=== PATIENT | female | born 1980 | race African-American/Black ===

== ENCOUNTER 2020-09-02 06:49 | Emergency (ER) | payer OTHER ==
[~2020-09-02] VITALS: Ht 149.9 cm; Wt 78.0 kg
[2020-09-02] MEDS ORDERED: HYDROCHLOROTHIA25 M2 PO ×2 (07:09→10:19)
[2020-09-02] MEDS ORDERED: TOPROL XL50 MG PO (07:09)
[2020-09-02 07:51] LABS: ABSOLUTE BASOPHILS 0.1 thou/uL (0.0-0.2); ABSOLUTE EOSINOPHILS 0.1 thou/uL (0.0-0.7); ABSOLUTE LYMPHOCYTES 1.8 thou/uL (0.8-5.3); ABSOLUTE MONOCYTES 0.7 thou/uL (0.0-1.2); ABSOLUTE NEUTROPHILS 5.3 thou/uL (1.6-8.1); BASOPHILS 0.8 %; EOSINOPHILS 1.5 %; HEMATOCRIT 40.5 % (37.0-47.0); HEMOGLOBIN 13.6 gm/dL (12.0-15.0); LYMPHOCYTES 22.5 %; MCH 30.6 pg (26.0-34.0); MCHC 33.6 g/dL (28.0-37.0); MONOCYTES 9.1 %; MPV 8.5 fl. (7.2-11.1); NUCLEATED RBCS 0 /100WBC; PLATELET COUNT* 194 thou/uL (150-400); POLYS 66.1 %; RBC 4.45 mil/uL (4.20-5.00); RDW-CV 13.8 % (10.5-14.5)
[2020-09-02 08:10] LABS: CALCIUM 8.7 mg/dL (8.5-10.1); POTASSIUM 3.2 mmol/L (3.5-5.1)
[2020-09-02 08:13] LABS: ALBUMIN 3.6 g/dL (3.4-5.0); TOTAL BILIRUBIN 0.3 mg/dL (<0.1-1.0)
[2020-09-02] MEDS ORDERED: KAPSPARGO SPRIN50 MG PO (10:19)
[2020-09-02 10:47] VITALS: BP 146/92
--- NOTE | 2020-09-03 10:07 | EKG ---
[place] [address] ELECTROCARDIOGRAM REPORT Name: FERNYGRAYSON Flor Room: [facility]#: [id number] Admission: 09/02/20 Attend Phys: Discharge: 09/02/20 Date of : 84 Date of Service: 09/02/20716 Report #: [id number] THIS REPORT FOR: //name// [facility] ED Test Date: 2020-09-02 Test Time: 07:17:26 Pat Name: GRAYSON ISAACS Department: Room: Gender: F Medical Education Specialist: TDS : 1980 Requested By: Huan Nazario Order Number: [id number] MD: Manish Best Measurements Intervals [place] Rate: 86 P: 54 IA: 146 QRS: 36 QRSD: 98 T: 173 QT: 380 QTc: 455 Interpretive Statements Sinus rhythm Probable left atrial enlargement LVH with secondary repolarization abnormality Anterior Q waves, possibly due to LVH No previous ECG available for comparison Electronically Signed On 09-03-2020 10:07:00 OBSERVATORY DIRECTOR by Manish Best [email or web address] <ELECTRONICALLY SIGNED> By: Manish Best MD, FACC 09/03/20 1007 6 6 Manish Best MD, [facility] /EPI
== END 2020-09-02 10:48 | disposition home or self-care (01) ==
LOC: M.ERS 06:49
PROVIDERS: Emergency Medicine
DX: I10 Essential (primary) hypertension (principal); Z79.899 Other long term (current) drug therapy

== ENCOUNTER 2020-10-11 17:21 | Emergency (ER) | payer OTHER ==
[~2020-10-11] VITALS: Ht 149.9 cm; Wt 79.4 kg
[~2020-10-11 17:21] MED LIST: HYDROCHLOROTHIA25 M2 PO; KAPSPARGO SPRIN50 MG PO; TOPROL XL50 MG PO
[2020-10-11 17:53] LABS: HEMOGLOBIN 14.5 gm/dL (12.0-15.0); MCH 30.7 pg (26.0-34.0); MCHC 33.7 g/dL (28.0-37.0); MCV 91.1 fL (80.0-100.0); MPV 8.1 fl. (7.2-11.1); NUCLEATED RBCS 0 /100WBC; PLATELET COUNT* 228 thou/uL (150-400); RBC 4.72 mil/uL (4.20-5.00); RDW-CV 14.3 % (10.5-14.5); WBC 14.8 thou/uL (4.0-11.0)
[2020-10-11 18:02] LABS: CALCIUM 9.2 mg/dL (8.5-10.1); POTASSIUM 3.2 mmol/L (3.5-5.1)
[2020-10-11 18:06] LABS: ALBUMIN 3.9 g/dL (3.4-5.0); TOTAL BILIRUBIN 0.8 mg/dL (<0.1-1.0); TOTAL PROTEIN 7.7 g/dL (6.4-8.2)
[2020-10-11 18:12] LABS: ABSOLUTE LYMPHOCYTES 0.6 thou/uL (0.8-5.3); ABSOLUTE MONOCYTES 0.3 thou/uL (0.0-1.2); ABSOLUTE NEUTROPHILS 13.9 thou/uL (1.6-8.1); PLATELET ESTIMATE ADEQUATE
[2020-10-11 19:44] LABS: URINE BILIRUBIN NEGATIVE (Negative); URINE BLOOD 3+ (Negative); URINE COLOR YELLOW; URINE GLUCOSE-RANDOM NEGATIVE (Negative); URINE KETONES NEGATIVE (Negative); URINE LEUKOCYTES-REFLEX NEGATIVE (Negative); URINE NITRITE-REFLEX NEGATIVE (Negative); URINE PROTEIN 1+ (Negative); URINE SPECIFIC GRAVITY >= 1.030 (1.005-1.030); URINE UROBILINOGEN 0.2 E.U./dl (0.2-1.0)
[2020-10-11 19:49] LABS: URINE CLARITY HAZY
[2020-10-11 19:54] LABS: SQUAMOUS >10 Many /LPF (0-3)
[2020-10-11 19:55] LABS: BACTERIA-REFLEX None Seen /HPF (None Seen); CASTS None Seen /LPF (None Seen); CRYSTALS None Seen /LPF (None Seen); URINE RBC 0-2 Rare /HPF (0-2); URINE WBC-REFLEX None Seen /HPF (0-5)
[2020-10-11] MEDS ORDERED: NORCO5 PO (20:11)
[2020-10-11] MEDS ORDERED: ONDANSETRON ODT4 MG PO (20:11)
[2020-10-11] MEDS ORDERED: ENEMA READY-TO133 ML PO (20:42)
[2020-10-11] MEDS ORDERED: ENEMA133 M1 RECTAL (20:43)
[2020-10-11 20:46] VITALS: BP 132/70
== END 2020-10-11 20:46 | disposition home or self-care (01) ==
LOC: M.ERS 17:21
PROVIDERS: Physician Assistant
DX: R10.12 Left upper quadrant pain (principal); R11.2 Nausea with vomiting, unspecified; I10 Essential (primary) hypertension; Z79.899 Other long term (current) drug therapy